=== PATIENT | male | born 1985 | race Caucasian/White ===

== ENCOUNTER 2022-02-09 20:26 | Emergency (ER) | payer OTHER ==
--- NOTE | 2022-02-09 21:27 | ED ---
General Adult HPI - General Chief complaint: Recheck/Abnormal Lab/Rx Stated complaint: Drug use Time Seen by Provider: 02/09/22 21:15 Source: patient, RN notes reviewed, old records reviewed Mode of arrival: ambulatory Limitations: no limitations - History of Present Illness Initial comments: 36-year-old well appearing male presents to the emergency room sent by [facility] where he is a resident there for drug rehab. Patient was told to come in for evaluation after they found out he used heroin 2 days ago and then twice again today. He states that he injected this morning and again at 4:00 today and he also did meth. He denies any complaints. No difficulty breathing, no chest pain or fevers. Injection sites are without swelling or erythema. He states that he was told to come in for evaluation. -: days(s) (3) Severity scale (1-10): 0 Associated Symptoms: denies other symptoms - Related Data Previous Rx's Medication Instructions Recorded Penicillin V Potassium [Pen Vee K] 500 mg PO QID 10 Days day 02/09/15 Allergies Allergy/AdvReac Type Severity Reaction Status Date / Time No Known Allergies Allergy Verified 02/09/22 20:49 Review of Systems ROS Statement: Those systems with pertinent positive or pertinent negative responses have been documented in the HPI. ROS Other: All systems not noted in ROS Statement are negative. Past Medical History Past Medical History: No Reported History History of Any Multi-Drug Resistant Organisms: None Reported Past Surgical History: No Surgical Hx Reported Past Psychological History: No Psychological Hx Reported Smoking Status: Current every day smoker Past Alcohol Use History: Occasional Past Drug Use History: Heroin, Methamphetamine General Exam Limitations: no limitations General appearance: alert, in no apparent distress Head exam: Present: atraumatic Eye exam: Present: normal appearance. Absent: scleral icterus, conjunctival injection, periorbital swelling ENT exam: Present: mucous membranes moist Neck exam: Present: normal inspection, full ROM. Absent: tenderness, meningismus Respiratory exam: Present: normal lung sounds bilaterally. Absent: respiratory distress, accessory muscle use Cardiovascular Exam: Present: regular rate GI/Abdominal exam: Present: soft. Absent: distended, tenderness Extremities exam: Present: normal capillary refill. Absent: pedal edema Neurological exam: Present: alert, oriented X3, normal gait Psychiatric exam: Present: normal affect, normal mood. Absent: agitated, anxious, flat affect, manic, homicidal ideation, suicidal ideation Skin exam: Present: warm, dry, normal color. Absent: cyanosis, diaphoretic, pallor Course Vital Signs 02/09/22 02/09/22 20:46 21:44 Temperature 98.3 F 98.7 F Pulse Rate 85 86 Respiratory 16 18 Rate Blood Pressure 146/93 134/87 O2 Sat by Pulse 99 100 Oximetry Medical Decision Making - Medical Decision Making Patient states he last used heroin and meth today at 4:00. He has no complaints. His vitals are stable. Patient denies any homicidal or suicidal ideation. Case discussed with Dr. Solis. He'll be discharged and directed to continue with rehab. Family member at bedside. - Lab Data Lab Results 02/09/22 Range/Units 21:45 Urine Opiates Screen Not Detected (NotDetected) Ur Oxycodone Screen Not Detected (NotDetected) Urine Methadone Screen Not Detected (NotDetected) Ur Propoxyphene Screen Not Detected (NotDetected) Ur Barbiturates Screen Not Detected (NotDetected) U Tricyclic Antidepress Not Detected (NotDetected) Ur Phencyclidine Scrn Not Detected (NotDetected) Ur Amphetamines Screen Detected H (NotDetected) U Methamphetamines Scrn Detected H (NotDetected) U Benzodiazepines Scrn Not Detected (NotDetected) Urine Cocaine Screen Not Detected (NotDetected) U Marijuana (THC) Screen Not Detected (NotDetected) Disposition Clinical Impression: Polysubstance abuse Disposition: HOME SELF-CARE Condition: Good Instructions (If sedation given, give patient instructions): Polysubstance Abuse (ED) Additional Instructions: Please continue your fight against drug addiction. Return to [facility] for continuation of care. Return to the emergency room if any new or concerning symptoms including fevers, difficulty in breathing or chest pain. Is patient prescribed a controlled substance at d/c from ED?: No Referrals: None,Stated [Primary Care Provider] - 1-2 days Time of Disposition: 21:33
[2022-02-09 21:46] VITALS: BP 134/87; PULSE 86; RESP 18; TEMP 98.7
[2022-02-09 22:12] LABS: Amphetamine Screen,Urine Detected (NotDetected); Barbiturate Screen,Urine Not Detected (NotDetected); Benzodiazepines Screen,Urine Not Detected (NotDetected); Cocaine Screen,Urine Not Detected (NotDetected); Methadone Screen, Urine Not Detected (NotDetected); Opiate Screen,Urine Not Detected (NotDetected); Oxycodone Screen, Urine Not Detected (NotDetected); Phencyclidine Screen,Urine Not Detected (NotDetected); Tricyclic Antidepressant,Urine Not Detected (NotDetected); Urn Cannabinoid Scrn Not Detected (NotDetected)
== END 2022-02-09 21:46 | disposition home or self-care (01) ==
LOC: EC 20:26
DX: F19.10 Other psychoactive substance abuse, uncomplicated (principal); F17.200 Nicotine dependence, unspecified, uncomplicated
CPT/HCPCS: 80306; 99283

== ENCOUNTER → 2024-10-13 | Outpatient (CLI) | payer OTHER ==
--- NOTE | 2024-10-13 07:40 | US ---
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 FINDINGS: EXAM MEASUREMENTS: Liver Length: 14.2 cm Gallbladder Wall: 0.15 cm CBD: 0.48 cm Right Kidney: 10.9 x 6.6 x 4.5 cm LICENSED INSURANCE AGENT NOTES: Pancreas: duct measuring 2.6mm Liver: wnl Gallbladder: wnl Evidence for sonographic Espitia's sign: No CBD: wnl Right Kidney: wnl IMPRESSION: No focal intrahepatic mass or intrahepatic ductal dilatation. [facility], , 10/13/2024 7:38 AM
[2024-10-13 10:34] LABS: Basophils # (A) 0.08 X 10*3/uL (0.00-0.10); Basophils % (A) 1.2 %; Eosinophils # (A) 0.16 X 10*3/uL (0.04-0.35); Eosinophils % (A) 2.4 %; HCT 47.2 % (39.6-50.0); HGB 15.8 g/dL (13.0-17.0); Lymphocytes # (A) 2.55 X 10*3/uL (0.90-5.00); Lymphocytes % (A) 38.3 %; MCH 29.7 pg (27.0-32.0); MCHC 33.5 g/dL (32.0-37.0); MCV 88.7 FL (80.0-97.0); Mean Platelet Volume 9.9 FL (9.5-12.2); Monocytes # (A) 0.53 X 10*3/uL (0.20-1.00); NRBC Per 100 WBC 0 X 10*3/uL (0.00-0.01); Neutrophils # (A) 3.33 X 10*3/uL (1.80-7.70); Neutrophils % (A) 49.9 %; Platelet Count 236 X 10*3/uL (140-440); RBC 5.32 X 10*6/uL (4.40-5.60); RDW 12.6 % (11.5-14.5); WBC 6.66 X 10*3/uL (4.50-10.00)
[2024-10-13 10:43] LABS: ALT 31 U/L (10-49); AST 27 U/L (14-35); Albumin 4.2 g/dL (3.8-4.9); Albumin/Globulin Ratio 1.56 Ratio (1.60-3.17); Alkaline Phosphatase 60 U/L (41-126); BUN/Creat Ratio 15.67 Ratio (12.00-20.00); Blood Urea Nitrogen 14.1 mg/dL (9.0-27.0); Calcium 9.1 mg/dL (8.7-10.3); Carbon Dioxide 28.8 mmol/L (21.6-31.8); Chloride 107 mmol/L (96-109); Globulin 2.7 g/dL (1.6-3.3); Glucose 87 mg/dL (70-110); Potassium 4.6 mmol/L (3.5-5.5); Sodium 142 mmol/L (135-145); Total Bilirubin 0.5 mg/dL (0.3-1.2); Total Protein 6.9 g/dL (6.2-8.2)
[2024-10-13 11:35] LABS: Hepatitis B Core IgM Nonreactive (Nonreactive)
[2024-10-13 12:39] LABS: Hepatitis B Surface AB- Quant 3.5 mIU/mL
[2024-10-13 13:03] LABS: Alpha Fetoprotein, Tumor Mkr <3.00 ng/mL (0.00-7.90)
== END | disposition home or self-care (01) ==
LOC: RADUSWWP 07:12
PROVIDERS: ATTEND Internal Medicine Gastroenterology
DX: B18.2 Chronic viral hepatitis C (principal)
CPT/HCPCS: 76705; 80053; 81596; 82105; 85025; 86705; 86706; 87522